=== PATIENT | male | born 1970 | race Caucasian/White ===

== ENCOUNTER → 2017-02-05 | Outpatient (CLI) | payer BC ==
[~2017-02-05] MED LIST: ACET-1256 PO; GABA-113 PO; HYDR-5688 PO; IBUP-1050 PO; NICO14DI9 TOP; NXM/40 PO; PRAV20TA PO; SERT-234 PO; TIOT1SPR INH
--- NOTE | 2017-02-05 16:32 | DIAGNOSTIC IMAGING REPORT ---
L-SPINE FLEX/EXT BENDING MIN 6 CLINICAL HISTORY: LUMBAR RADICULOPATHY COMPARISON STUDY: None FINDINGS: Normal study. Body stature is unremarkable. No evidence for subluxation with the patient in flexion or extension. Posterior elements are intact throughout. IMPRESSION: Normal study. Anatomic alignment with the patient in flexion as well as extension Electronically signed by: Frankie Rhodes M.D. 02/05/2017 4:30 PM Dictated Date/Time: 02/05/2017 4:29 PM
== END | disposition home or self-care (01) ==
LOC: C.RAD 15:38
PROVIDERS: ATTEND Physician Assistant
DX: M54.16 Radiculopathy, lumbar region (principal)

== ENCOUNTER → 2017-02-24 | Outpatient (CLI) | payer BC ==
--- NOTE | 2017-02-24 20:17 | DIAGNOSTIC IMAGING REPORT ---
LUMBAR SPINE MRI HISTORY: Pain. Neuropathy. LUMBAR RADICULOPATHY TECHNIQUE: Multiplanar multisequence MRI of the lumbar spine was performed without the use of contrast. COMPARISON: None. FINDINGS: For the purpose of the report the L5-S1 disc space will be located on axial image 27 of 30. Normal signal characteristics the vertebral bodies as well as intervertebral disc. L1-L2: No significant central canal or neural foraminal narrowing. L2-L3: No significant central canal or neural foraminal narrowing. L3-L4: No significant central canal or neural foraminal narrowing. L4-L5: Minimal broad-based disc bulge. Minimal narrowing neuroforamina bilaterally. L5-S1: Central disc herniation. Mild posterior displacement of the right S1 nerve root. No significant impact with thecal sac. IMPRESSION: 1. Right central posterior disc herniation L5-S1. Mild posterior displacement of the right S1 nerve root as well as mild narrowing of the right and to lesser extent left neural foramina. 2. Minimal broad-based disc bulge L4-L5. Electronically signed by: Frankie Rhodes M.D. 02/24/2017 8:16 PM Dictated Date/Time: 02/24/2017 8:14 PM
== END | disposition home or self-care (01) ==
LOC: C.MRI 19:07
PROVIDERS: ATTEND Physician Assistant
DX: M51.17 Intervertebral disc disorders with radiculopathy, lumbosacral region (principal)

== ENCOUNTER 2017-04-25 07:53 | Observation (INO) | payer BC ==
--- NOTE | 2017-04-18 10:24 | PAT Medication Instructions ---
Service Date Apr 18, 2017. Current Home Medication List Acetaminophen (Tylenol), 1,000 MG PO PRN Esomeprazole Magnesium (Nexium), 40 MG PO BID Gabapentin (Neurontin), 300 MG PO BID Ibuprofen (Advil), 800 MG PO PRN Pravastatin (Pravachol ), 40 MG PO HS Sertraline (Zoloft), 100 MG PO QAM Tiotropium [place] (Spiriva Respimat), 2 PUFF INH QAM Medication Instructions For Your Scheduled Surgery - Check with surgeon for instructions: Ibuprofen (Advil), 800 MG PO PRN - Take the following medications the morning of surgery with a sip of water: Sertraline (Zoloft), 100 MG PO QAM Tiotropium [place] (Spiriva Respimat), 2 PUFF INH QAM Esomeprazole Magnesium (Nexium), 40 MG PO BID Gabapentin (Neurontin), 300 MG PO BID Acetaminophen (Tylenol), 1,000 MG PO PRN (if needed) - Take the following medications as scheduled the night before surgery: Pravastatin (Pravachol ), 40 MG PO HS Esomeprazole Magnesium (Nexium), 40 MG PO BID Gabapentin (Neurontin), 300 MG PO BID Acetaminophen (Tylenol), 1,000 MG PO PRN (if needed) If you have any questions please call us at [phone] or [phone] or [phone]
[2017-04-18 11:11] LABS: BASO % 0.3 %; BASO ABS # 0.05 K/uL (0-0.2); COMPLETE YES; HEMATOCRIT 49.7 % (42-52); IG% 0.3 %; LYMPH % 19.4 %; LYMPH ABS # 2.82 K/uL (1.2-3.4); MEAN CELL VOLUME 94.1 fL (80-100); MEAN CORPUSCULAR HEMOGLOBIN 33.1 pg (25-34); MEAN CORPUSCULAR HGB CONC 35.2 g/dl (32-36); MONO % 8.8 %; NEUT % 70.2 %; PLATELET COUNT 396 K/uL (130-400); RED BLOOD COUNT 5.28 M/uL (4.7-6.1); WHITE BLOOD COUNT 14.56 K/uL (4.8-10.8)
[2017-04-18 11:15] LABS: URINE APPEARANCE CLEAR (CLEAR); URINE BILIRUBIN NEG (NEG); URINE COLOR YELLOW; URINE EPITHELIAL CELL AUTO 0-5 /lpf (0-5); URINE NITRITE NEG (NEG); URINE SPECIFIC GRAVITY 1.013 (1.000-1.030); UROBILINOGEN NEG (NEG)
[2017-04-18 11:16] LABS: MANUAL MICROSCOPIC REQUIRED? NO; REVIEW REQ? NO
[2017-04-18 11:21] LABS: INR 0.9 (0.9-1.1)
[2017-04-18 13:30] LABS: BUN/CREATININE RATIO 7.6 (10-20); CREATININE 1.3 mg/dl (0.60-1.40); POTASSIUM 4.8 mmol/L (3.5-5.1)
[2017-04-25] VITALS (8 sets, daily range): BP systolic 112–146; BP diastolic 70–93; PULSE 73–88; TEMP 36.5–36.8; O2SAT 93–99; Ht 182.9 cm; Wt 67.1 kg
[~2017-04-25] VITALS: Ht 182.9 cm; Wt 67.1 kg
--- NOTE | 2017-04-25 07:34 | History and Physical ---
History & Physical Date Apr 25, 2017. Chief Complaint Lumbar spine and lower extremity pain History of Present Illness The patient is a 46 year old male with complaints of lumbar spine and lower extremity pain for months in duration. Failure to improve the patient with conservative measures pain and lower extremity weakness as well. Past Medical/Surgical History Medical Problems: (1) HTN (hypertension) Surgical history: Shoulder surgery splenectomy. Allergies: Penicillin Additional History Hepatic Disease: No Endocrine Disorder: No Kidney Disease: No Hypertension: No Heart Disease: No Bleeding Tendencies: No Infectious Diseases: No Other: Early emphysema. Depression. Allergies Coded Allergies: Penicillins (Verified Allergy, Unknown, RASH, 04/18/17) Tramadol (Verified Adverse Reaction, Mild, FELT "OUT OF IT" AND "SKIN CRAWLING SENSATION", 04/18/17) Home Medications Scheduled Acetaminophen (Tylenol), 1,000 MG PO PRN Esomeprazole Magnesium (Nexium), 40 MG PO BID Gabapentin (Neurontin), 300 MG PO BID Ibuprofen (Advil), 800 MG PO PRN Pravastatin (Pravachol ), 40 MG PO HS Sertraline (Zoloft), 100 MG PO QAM Tiotropium [place] (Spiriva Respimat), 2 PUFF INH QAM Physical Examination Skin: warm/dry Eyes: normal inspection ENT: normal ENT inspection Head: normocephalic Neck: supple Respiratory/Chest: lungs clear Cardiovascular: regular rate, rhythm Abdomen / GI: normal bowel sounds, non tender Extremities: + pertinent finding (decreased range of motion pain with percussion. Loss of motion in flexion-extension and rotation.) Genitourinary - Male: normal male genitalia Neurologic/Psych: + pertinent finding (loss of sensation S1 nerve root distribution. Again pain with straight leg raising. Still Achilles reflex. No upper motor neuron pathology) Diagnosis Disc herniation lumbar spine ASA Classification: ASA Class III Plan of Treatment Discectomy L5-S1
[~2017-04-25 07:53] MED LIST changes: +CEFAZOLIN 2000 MG/60 ML D5W 60 ML IV SCH; -HYDR-5688 PO; +LACTATED RINGER'S 1000ML 1,000 ML IV SCH; -NICO14DI9 TOP; +NSS 1000ML IV SCH
[2017-04-25] MEDS ORDERED: THROMBIN FOR SOLN 20000 UNIT KIT ONE (09:19)
[2017-04-25] MEDS ORDERED: GELATIN SPONGE SZ 100 ONE (09:19)
[2017-04-25] MEDS ORDERED: BACITRACIN 50000 UNIT VIAL ONE (09:20)
[2017-04-25] MEDS ORDERED: VANCOMYCIN HCL 1000MG/20ML VIAL ONE (09:20)
[2017-04-25] MEDS ORDERED: BUPIVACAINE/EPINEPHRINE 0.5% MPF 1:200,000 10 ML VIAL ONE ×2 (09:20→09:28)
[2017-04-25] MEDS ORDERED: MIDAZOLAM HCL 1 MG/ML 2ML VIAL ONE (09:27)
[2017-04-25] MEDS ORDERED: FENTANYL CITRATE INJ 50 MCG/1 ML 2 ML VIAL ONE ×2 (09:27→11:29)
[2017-04-25] MEDS ORDERED: NURSING VERBAL MED ORDER ONE ×2 (09:45→16:45)
[2017-04-25] MEDS ORDERED: NICO14DI9 TOP (09:58)
[2017-04-25] MEDS ORDERED: ATROPINE SULFATE 0.1 MG/ML 5ML SYR IV PRN (11:00)
[2017-04-25] MEDS ORDERED: ONDANSETRON INJ 2 MG/ML 2 ML VIAL IV PRN ×2 (11:00→11:30)
[2017-04-25] MEDS ORDERED: FENTANYL CITRATE INJ 50 MCG/1 ML 2 ML VIAL IV PRN (11:00)
[2017-04-25] MEDS ORDERED: MEPERIDINE HCL 25 MG/ML CARP IV PRN (11:00)
[2017-04-25] MEDS ORDERED: LABETALOL HCL IV 5 MG/ML 20ML IV PRN (11:00)
[2017-04-25] MEDS ORDERED: HYDROmorphone INJ 1 MG/ML SYR IV PRN ×2 (11:00→11:30)
[2017-04-25] MEDS ORDERED: EpHEDrine SULFATE INJ 50 MG/ML AMP IV PRN (11:00)
--- NOTE | 2017-04-25 11:02 | DIAGNOSTIC IMAGING REPORT ---
SPINE ONE VIEW, ANY LEVEL CLINICAL HISTORY: 46 years-old Male presenting with L5-S1 DISCECTOMY. TECHNIQUE: 1 fluoroscopic spot image(s) obtained as part of intraoperative procedure. COMPARISON: Plain radiographs from 02/05/2017. FINDINGS/IMPRESSION: Surgical instrumentation projects over the L5-S1 intervertebral disc space. Anatomic alignment of the lumbosacral junction grossly maintained. Please see surgical report for further details. Fluoroscopy dosage (mGy): Not available. Fluoroscopy time: 4.4 seconds. Number of fluoroscopic spot images: 1. Electronically signed by: Earl Herrera M.D. 04/25/2017 11:01 AM Dictated Date/Time: 04/25/2017 11:00 AM
[2017-04-25] MEDS ORDERED: SODIUM CHLORIDE 0.9% 1000ML 1,000 ML IV SCH (11:17)
--- NOTE | 2017-04-25 11:22 | [facility] Operative Report ---
Operative Report Operative Date Apr 25, 2017. Pre-Operative Diagnosis L5-S1 Disc Herniation Post-Operative Diagnosis L5-S1 Disc Herniation Procedure(s) Performed L5-S1 Discectomy Surgeon Dr. Ivey Client Reporting Associate Surgeon(s) Raffi Bauer PA-C Estimated Blood Loss 20ml Findings Disc herniation lumbar spine at L5-S1 Specimens none per surgeon Complication(s) None Disposition Recovery Room / PACU Description of Procedure Description Patient was taken to the operating room a general intubated anesthetic provided to the patient placed prone on the Jeremiah table. Scrubbed with Betadine prep with ChloraPrep. Draped sterile. We made a skin incision then fascial incision. The right down at L5-S1 we used C-arm guidance. We did a mini laminotomy upgoing and downgoing foraminotomies. We took off a small piece of ligamentum flavum. We gently retracted the dura medial and nerve root medial discectomy first with a 15 number scalpel blade and pituitary Hai juris. The nerve to be free of obstruction. Irrigated thoroughly placed some Gelfoam over the dural structures close fascia fashion with 1 Vicryl suture to all in the subcuticular layer vancomycin placed in the in the subcuticular layer 3-0 nylon on the skin surface. Sterile dressings applied as returned to PACU stable no apparent complications. Needle count correct at the close of procedure I attest to the content of the Intraoperative Record and any orders documented therein. Any exceptions are noted below.
[2017-04-25] MEDS ORDERED: ONDANSETRON INJ 2 MG/ML 2 ML VIAL ONE (11:28)
[2017-04-25] MEDS ORDERED: PROPOFOL IV EMULSION 10 MG/ML 20 ML VIAL IV ONE (11:28)
[2017-04-25] MEDS ORDERED: DEXAMETHASONE SOD INJ 4 MG/ML VIAL ONE (11:28)
[2017-04-25] MEDS ORDERED: GLYCOPYRROLATE INJ 0.2 MG/ML VIAL ONE (11:28)
[2017-04-25] MEDS ORDERED: ROCURONIUM BROMIDE 10 MG/ML 5 ML VIAL ONE (11:28)
[2017-04-25] MEDS ORDERED: NEOSTIGMINE METHYLSULFATE 5 MG/5 ML SYR ONE (11:28)
[2017-04-25] MEDS ORDERED: MAGNESIUM HYDROXIDE SUSP 30 ML UDC PO PRN (11:30)
[2017-04-25] MEDS ORDERED: ACETAMINOPHEN 325 MG TAB PO PRN (11:30)
[2017-04-25] MEDS ORDERED: HYDROmorphone INJ 2 MG/ML SYR/VIAL IV PRN (11:30)
[2017-04-25] MEDS ORDERED: METOCLOPRAMIDE HCL INJ 5 MG/ML 2 ML VIAL IV PRN (11:30)
[2017-04-25] MEDS ORDERED: PROMETHAZINE HCL INJ 12.5 MG in SODIUM CHLORIDE 0.9% 50ML 50 ML IV PRN (11:30)
[2017-04-25] MEDS ORDERED: OXYCODONE/ACETAMINOPHEN 5-325 TAB PO PRN (11:30)
[2017-04-25] MEDS ORDERED: LORAZEPAM 1 MG TAB PO PRN (11:30)
[2017-04-25] MEDS ORDERED: LORAZEPAM INJ 1 MG in SYRINGE 0.5 ML IV PRN (11:30)
[2017-04-25] MEDS ORDERED: IV FLUIDS COMPLETED PRN (12:15)
--- NOTE | 2017-04-25 12:19 | Anesthesiology Progress Note ---
Anesthesia Post Op Note Date & Time Apr 25, 2017 at 12:18 Vital Signs Pain Intensity: 0 Vital Signs Past 12 Hours Date Time Temp Pulse Resp B/P (MAP) Pulse Ox O2 Delivery O2 Flow Rate FiO2 04/25/17 12:10 78 18 113/74 99 Oxymask 2 Nasal Cannula 04/25/17 12:00 78 18 120/76 99 Oxymask 2 Nasal Cannula 04/25/17 11:50 36.3 76 20 123/77 99 Oxymask 2 Nasal Cannula 04/25/17 11:40 84 20 131/83 99 Oxymask 2 Nasal Cannula 04/25/17 11:30 82 20 134/81 99 Oxymask 3 04/25/17 11:20 100 20 141/79 99 Oxymask 5 04/25/17 11:15 36.1 100 20 149/91 99 Oxymask 5 04/25/17 08:23 36.8 78 20 146/93 (110) 97 Room Air Notes Mental Status: alert / awake / arousable, participated in evaluation Pt Amnestic to Procedure: Yes Nausea / Vomiting: adequately controlled Pain: adequately controlled Airway Patency, RR, SpO2: stable & adequate BP & HR: stable & adequate Hydration State: stable & adequate Anesthetic Complications: no major complications apparent
[2017-04-25] MEDS: KETOROLAC TROMETHAMINE 30 MG/ML VIAL IV SCH ×2 (13:40→20:23)
[2017-04-25] MEDS: OXYCODONE/ACETAMINOPHEN 5-325 TAB PO PRN ×2 (14:42→22:14)
[2017-04-25] MEDS: NICOTINE 14 MG/24 HR TDSY TD SCH (17:49)
[2017-04-25] MEDS: CEFAZOLIN IV 1,000 MG in DEXTROSE 5% 50ML 50 ML IV SCH (17:50)
[2017-04-25] MEDS: DEXAMETHASONE INJ 10 MG in SYRINGE 0 ML IV SCH (17:50)
[2017-04-25] MEDS: GABAPENTIN 300 MG CAP PO SCH (20:25)
[2017-04-25] MEDS: PANTOprazole SOD 40 MG TAB PO SCH (20:26)
[2017-04-25] MEDS ORDERED: PRAVASTATIN SOD 40 MG TAB PO SCH (21:00)
[2017-04-26] MEDS: KETOROLAC TROMETHAMINE 30 MG/ML VIAL IV SCH ×2 (02:34→08:11)
[2017-04-26] MEDS: CEFAZOLIN IV 1,000 MG in DEXTROSE 5% 50ML 50 ML IV SCH ×2 (02:34→10:22)
[2017-04-26] MEDS: DEXAMETHASONE INJ 10 MG in SYRINGE 0 ML IV SCH ×2 (02:34→10:22)
[2017-04-26 02:40] VITALS: BP 124/72; PULSE 74; TEMP 36.6; O2SAT 94
[2017-04-26] MEDS: OXYCODONE/ACETAMINOPHEN 5-325 TAB PO PRN ×2 (02:40→08:10)
[2017-04-26] MEDS ORDERED: BISACODYL 5 MG TABEC PO PRN (06:00)
[2017-04-26] MEDS ORDERED: BISACODYL 10 MG SUPP PR PRN (06:00)
--- NOTE | 2017-04-26 07:23 | Discharge Instructions ---
Discharge Instructions Date of Service Apr 26, 2017. Admission Reason for Admission: L5-S1 Disc Herniation Discharge Discharge Diagnosis / Problem: disc herniation Discharge Goals Goal(s): Improve function Activity Recommendations Activity Limitations: as noted below Lifting Limitations: until after follow-up appointment Exercise/Sports Limitations: until after follow-up appointment May Resume Sexual Activity: after follow-up appointment Shower/Bathe: keep incision dry just be careful . Current Hospital Diet Patient's current hospital diet: Regular Diet Discharge Diet Recommended Diet: Regular Diet Procedures Procedures Performed: L5-S1 Discectomy Pending Studies Studies pending at discharge: no Medical Emergencies . Who to Call and When: Medical Emergencies: If at any time you feel your situation is an emergency, please call 911 immediately. . Non-Emergent Contact Non-Emergency issues call your: Surgeon . "Provider Documentation" section prepared by Michel Ivey. . VTE Core Measure Inpt VTE Proph given/why not?: Treatment not indicated
--- NOTE | 2017-04-26 07:28 | Discharge Summary ---
Orthopedic Discharge Summary Admission Date/Reason Apr 25, 2017 at 08:15 L5-S1 Disc Herniation. Discharge Date/Disposition Apr 26, 2017 Home Diagnosis Principal Diagnosis: Lumbar spine disc herniation Procedure(s) Performed Lumbar spine discectomy L5-S1 Medication Reconciliation [place] for pain Admission Physical Exam As per Admitting History & Physical. Hospital Course Patient was admitted to my service after surgery a April. He was improved stable and ambulatory that evening discharged home safely on the . He had no chest pain shortness or breath or confusion nor neurological deficit traction precautions provided the patient in the office and during his hospital stay Discharge Instructions Please refer to the electronic Patient Visit Report (Discharge Instructions) for additional information.
[2017-04-26 08:00] VITALS: BP 120/76; PULSE 80; TEMP 36.7; O2SAT 94
[2017-04-26] MEDS: GABAPENTIN 300 MG CAP PO SCH (08:10)
[2017-04-26] MEDS: NICOTINE 14 MG/24 HR TDSY TD SCH (08:11)
[2017-04-26] MEDS: PANTOprazole SOD 40 MG TAB PO SCH (08:11)
[2017-04-26 08:14] VITALS: O2SAT 94
[2017-04-26] MEDS ORDERED: POLYETHYLENE (MIRALAX) 17 GM PACK ONE (08:15)
[2017-04-26] MEDS ORDERED: SERTRALINE HCL 100 MG TAB PO SCH (09:00)
[2017-04-26] MEDS ORDERED: TIOTROPIUM BROMIDE 5 PUFF/90 MCG INH INH SCH (09:00)
[2017-04-26] MEDS ORDERED: POLYETHYLENE (MIRALAX) 17 GM PACK PO SCH (09:00)
[2017-04-26 10:18] VITALS: BP 171/74; PULSE 76; O2SAT 96
[2017-04-26 11:23] VITALS: BP 171/74; PULSE 76; TEMP 36.7; O2SAT 96
[2017-06-28] MEDS ORDERED: HYDR-5688 PO (09:43)
== END 2017-04-26 11:49 | disposition home or self-care (01) ==
LOC: C.ACU 07:53 → C.3E 08:15 → ENRESERV 12:05
PROVIDERS: ADMIT Orthopaedic Surgery Orthopaedic Surgery of the Spine; ATTEND Orthopaedic Surgery Orthopaedic Surgery of the Spine
DX: M51.27 Other intervertebral disc displacement, lumbosacral region (principal); I10 Essential (primary) hypertension; J43.9 Emphysema, unspecified; F32.9 Major depressive disorder, single episode, unspecified; Z79.899 Other long term (current) drug therapy

== ENCOUNTER → 2017-06-15 | Outpatient (CLI) | payer BC ==
[~2017-06-15] MED LIST changes: -CEFAZOLIN 2000 MG/60 ML D5W 60 ML IV SCH; +HYDR-5688 PO; -LACTATED RINGER'S 1000ML 1,000 ML IV SCH; +NICO14DI9 TOP; -NSS 1000ML IV SCH
--- NOTE | 2017-06-15 10:57 | DIAGNOSTIC IMAGING REPORT ---
LUMBAR SPINE MRI HISTORY: Low back pain. LUMBAR DISC HERNIATION; M51.26 TECHNIQUE: Multiplanar multisequence MRI of the lumbar spine was performed without the use of contrast. COMPARISON: Lumbar spine MRI 02/24/2017. FINDINGS: For the purpose of the report the L5-S1 disc space will be located on axial image 23 of 25. Mild to moderate disc space narrowing at L5-S1, unchanged. The remaining disc spaces are preserved. The conus terminates at the L1-L2 disc space. No fracture or subluxation. Interval right L5-S1 hemilaminectomy. There is a 1.4 x 0.8 cm fluid collection at the hemilaminectomy site. This likely represents a postoperative seroma. There is no associated mass effect from the small fluid collection. There is also edema within the soft tissues posterior to the L5-S1 level consistent with the recent postoperative change. L1-L2: No significant central canal or neural foraminal narrowing. L2-L3: No significant central canal or neural foraminal narrowing. L3-L4: No significant central canal or neural foraminal narrowing. L4-L5: Tiny broad-based posterior disc bulge without significant central canal narrowing. There is a small right foraminal/extraforaminal focal disc protrusion best seen on sagittal image 4 and axial image 18 and measures approximately 8 x 3 mm. This abuts but does not displace the exiting nerve root. L5-S1: There is again noted a right central/paracentral focal disc protrusion which has decreased in size. This abuts but does not displace the transiting right S1 nerve root. This disc protrusion currently measures approximately 1.4 x 0.5 cm, previously measuring 1.9 x 0.7 cm. IMPRESSION: 1. Status post right L5-S1 hemilaminectomy. The right central/paracentral focal disc protrusion has decreased in size as described above. This abuts but does not displace the transiting right S1 nerve root at this time. 2. Tiny disc bulge at L4-L5 with a small right foraminal/extraforaminal focal disc protrusion. This abuts but does not displace the exiting nerve root at this level. 3. Small focal fluid collection at the right L5-S1 hemilaminectomy site without associated mass effect. This favors a small postoperative seroma. Electronically signed by: Aman Smith M.D. 06/15/2017 10:56 AM Dictated Date/Time: 06/15/2017 10:46 AM
== END | disposition home or self-care (01) ==
LOC: C.MRIBC 09:50
PROVIDERS: ATTEND Orthopaedic Surgery Orthopaedic Surgery of the Spine
DX: M51.26 Other intervertebral disc displacement, lumbar region (principal); Z98.890 Other specified postprocedural states

== ENCOUNTER 2017-08-11 08:23 | Inpatient (IN) | payer BC ==
[2017-06-28 09:59] VITALS: Ht 182.9 cm; Wt 67.1 kg
[2017-07-01 16:41] LABS: BASO % 0.5 %; BASO ABS # 0.04 K/uL (0-0.2); COMPLETE YES; HEMATOCRIT 49.5 % (42-52); IG% 0.3 %; LYMPH % 34.5 %; LYMPH ABS # 2.66 K/uL (1.2-3.4); MEAN CELL VOLUME 94.1 fL (80-100); MEAN CORPUSCULAR HEMOGLOBIN 34.6 pg (25-34); MEAN CORPUSCULAR HGB CONC 36.8 g/dl (32-36); MEAN PLATELET VOLUME 9.2 fL (7.4-10.4); MONO % 9.1 %; NEUT % 54.6 %; PLATELET COUNT 343 K/uL (130-400); RED BLOOD COUNT 5.26 M/uL (4.7-6.1); WHITE BLOOD COUNT 7.72 K/uL (4.8-10.8)
[2017-07-01 16:51] LABS: PROTHROMBIN TIME (PATIENT) 10.5 SECONDS (9.0-12.0)
[2017-07-01 17:09] LABS: BLOOD UREA NITROGEN 10 mg/dl (7-18); BUN/CREATININE RATIO 8.4 (10-20); CALCIUM 9.5 mg/dl (8.5-10.1); CARBON DIOXIDE 27 mmol/L (21-32); CHLORIDE 105 mmol/L (98-107); GLUCOSE 91 mg/dl (70-99); POTASSIUM 4.2 mmol/L (3.5-5.1); SODIUM 140 mmol/L (136-145)
--- NOTE | 2017-08-10 10:44 | HISTORY & PHYSICAL EXAMINATION ---
DATE OF ADMISSION: 08/11/2017 CHIEF COMPLAINT: Back and lower extremity difficulty in the L5-S1 nerve root distribution. HISTORY OF PRESENT ILLNESS: Charles is a delightful patient. I did a discectomy on him in the past, he has failed. He actually had a good short term result but failed. He has gone on to reherniation and some instability at L5-S1. PAST MEDICAL HISTORY: Positive for COPD, no liver or kidney disease, no carcinoma. No diabetes, no hypothyroid. ALLERGIES: PENICILLIN. PAST SURGICAL HISTORY: Include low back surgery, splenectomy and shoulder surgery. SOCIAL HISTORY: Cigarette smoking 2 packs per day for many years. Alcohol, 1 alcoholic beverage daily. No cocaine, marijuana. MEDICATIONS: Sertraline, Spiriva, tramadol, ibuprofen. REVIEW OF SYSTEMS: He denies blurred vision, double vision, tinnitus, vertigo. No chest pain, angina. Does have asthma but currently no shortness of breath of significance. No nausea, vomiting or bowel and bladder compromise. His major complaint is spine and lower extremity. OBJECTIVE: GENERAL: He is 6 foot. He is 160 pounds. He is thin in stature. VITAL SIGNS: Blood pressure 130/80, pulse of 80, respiratory rate is 16. HEENT: Pupils react to light and accommodation. Ear, nose and throat clear. CARDIAC: Normal S1, no S2, no ectopy, no tachycardia. LUNGS: Clear. ABDOMEN: Soft, nontender. MUSCULOSKELETAL: He has pain with straight leg raising on the right, negative on the left, pain with flexion and extension. Pain with percussion, loss of his Achilles reflex per our note. IMPRESSION: Instability, recurrent disc herniation L5-S1. DISPOSITION: Includes surgery tomorrow on 08/11/2017, posterior lumbar interbody fusion at L5-S1.
[~2017-08-11] VITALS: Ht 182.9 cm; Wt 67.1 kg
[2017-08-11] VITALS (8 sets, daily range): BP systolic 109–144; BP diastolic 68–91; PULSE 79–122; TEMP 36.6–37; O2SAT 93–97
[~2017-08-11 08:23] MED LIST changes: -ACET-1256 PO; +ATROPINE SULFATE 0.1 MG/ML 5ML SYR IV PRN; +CLINDAMYCIN 600 MG/54 ML D5W 54 ML IV SCH; +CLINDAMYCIN 600 MG/54 ML D5W IV SCH; +EpHEDrine SULFATE INJ 50 MG/ML AMP IV PRN; +FENTANYL CITRATE INJ 50 MCG/1 ML 2 ML VIAL IV PRN; +FENTANYL CITRATE INJ 50 MCG/1 ML 2 ML VIAL ONE; +HYDROmorphone INJ 1 MG/ML SYR IV PRN; -IBUP-1050 PO; +MIDAZOLAM HCL 1 MG/ML 2ML VIAL ONE; -NICO14DI9 TOP; +NSS 1000ML IV SCH; +ONDANSETRON INJ 2 MG/ML 2 ML VIAL IV PRN; +SODIUM CHLORIDE 0.9% 1000ML 1,000 ML IV SCH
[2017-08-11] MEDS ORDERED: ALBUT/IPRATROP 3MG/0.5MG NEB 3 ML VIAL NEB STA (09:27)
[2017-08-11] MEDS ORDERED: ALBUTEROL 0.083% NEBU SOLN 3 ML VIAL INH PRN (10:00)
[2017-08-11] MEDS ORDERED: GELATIN SPONGE SZ 100 ONE (10:35)
[2017-08-11] MEDS ORDERED: THROMBIN FOR SOLN 20000 UNIT KIT ONE (10:35)
[2017-08-11] MEDS ORDERED: BUPIVACAINE/EPINEPHRINE 0.5% MPF 1:200,000 30 ML VIAL ONE (10:36)
[2017-08-11] MEDS ORDERED: BACITRACIN 50000 UNIT VIAL ONE (10:36)
[2017-08-11] MEDS ORDERED: VANCOMYCIN HCL 1000MG/20ML VIAL ONE (10:36)
--- NOTE | 2017-08-11 10:59 | History & Physical Bridge Note ---
H&P Re-Evaluation Bridge Note: I have examined the patient, reviewed the History & Physical and in the interval since the performance of the History & Physical I have noted the following changes of clinical significance: No changes noted
[2017-08-11] MEDS ORDERED: HYDROmorphone INJ 2 MG/ML SYR/VIAL ONE (11:32)
[2017-08-11] MEDS ORDERED: ROCURONIUM BROMIDE 10 MG/ML 5 ML VIAL IV ONE (12:25)
[2017-08-11] MEDS ORDERED: DEXAMETHASONE SOD INJ 4 MG/ML VIAL ONE (12:25)
[2017-08-11] MEDS ORDERED: GLYCOPYRROLATE INJ 0.2 MG/ML VIAL ONE (12:25)
[2017-08-11] MEDS ORDERED: PROPOFOL IV EMULSION 10 MG/ML 20 ML VIAL IV ONE (12:25)
[2017-08-11] MEDS ORDERED: NEOSTIGMINE METHYLSULFATE 5 MG/5 ML SYR ONE (12:25)
[2017-08-11] MEDS ORDERED: LIDOCAINE HCL 2% 2 ML VIAL (20MG/ML) ONE (12:25)
[2017-08-11] MEDS ORDERED: EpHEDrine SULFATE 50MG/5ML SYR ONE (12:25)
[2017-08-11] MEDS ORDERED: ONDANSETRON INJ 2 MG/ML 2 ML VIAL ONE (12:25)
[2017-08-11] MEDS ORDERED: ALBUTEROL HFA INHALER 8.5 GM INH ONE (12:26)
--- NOTE | 2017-08-11 13:41 | DIAGNOSTIC IMAGING REPORT ---
INTRAOPERATIVE RADIOGRAPH CLINICAL HISTORY: L5-S1 spinal fusion. Fluoroscopy time: 7 seconds. FINDINGS: A single spot fluoroscopic image of the lumbar spine is presented. There has been discectomy at L5-S1 with laminectomy and posterior fusion at this level. Interpedicular screws are present at both levels. The orthopedic hardware appears intact. IMPRESSION: Intraoperative images from L5 -S1 spinal fusion as above. Electronically signed by: Geronimo Paiz M.D. 08/11/2017 1:39 PM Dictated Date/Time: 08/11/2017 1:38 PM
[2017-08-11] MEDS ORDERED: SODIUM CHLORIDE 0.9% 1000ML 1,000 ML IV SCH ×2 (14:06)
--- NOTE | 2017-08-11 14:13 | [facility] Operative Report ---
Operative Report Operative Date Aug 11, 2017. Pre-Operative Diagnosis Instability, recurrent disc herniation L5-S1 Post-Operative Diagnosis Instability, recurrent disc herniation L5-S1 Procedure(s) Performed L5-S1 DECOMPRESSION , FUSION , INSTRUMENTATION WITH INTERBODY FUSION Surgeon Dr. Ivey Senior Research Executive Surgeon(s) MIGUE Glez Estimated Blood Loss 250ml Findings instability l5-s1 Specimens none per surgeon Complication(s) None Disposition Recovery Room / PACU I attest to the content of the Intraoperative Record and any orders documented therein. Any exceptions are noted below.
[2017-08-11] MEDS ORDERED: METOCLOPRAMIDE HCL INJ 5 MG/ML 2 ML VIAL IV PRN (14:15)
[2017-08-11] MEDS ORDERED: NALOXONE HCL 0.4 MG/1 ML VIAL/CARP IV PRN (14:15)
[2017-08-11] MEDS ORDERED: ONDANSETRON INJ 2 MG/ML 2 ML VIAL IV PRN (14:15)
[2017-08-11] MEDS ORDERED: MAGNESIUM HYDROXIDE SUSP 30 ML UDC PO PRN (14:15)
[2017-08-11] MEDS ORDERED: LARYING-O-JET KIT (LTA) ONE ×2 (14:15)
[2017-08-11] MEDS ORDERED: LORAZEPAM INJ 1 MG in SYRINGE 0.5 ML IV PRN (14:15)
[2017-08-11] MEDS ORDERED: ACETAMINOPHEN 325 MG TAB PO PRN (14:15)
[2017-08-11] MEDS ORDERED: LORAZEPAM 1 MG TAB PO PRN (14:15)
[2017-08-11] MEDS ORDERED: PROMETHAZINE HCL INJ 12.5 MG in SODIUM CHLORIDE 0.9% 50ML 50 ML IV PRN (14:15)
[2017-08-11] MEDS ORDERED: HYDROmorphone INJ 1 MG/ML SYR ONE (14:36)
[2017-08-11] MEDS ORDERED: FENTANYL CITRATE INJ 50 MCG/1 ML 2 ML VIAL ONE (14:37)
[2017-08-11] MEDS: HYDROmorphone HCL 0.5MG/ML 50 ML CASSETTE IV PRN ×2 (14:41→22:55)
[2017-08-11 14:55] LABS: HEMATOCRIT 45.8 % (42-52)
--- NOTE | 2017-08-11 15:01 | OPERATIVE REPORT ---
DATE OF OPERATION: 08/11/2017 PREOPERATIVE DIAGNOSES: Instability, recurrent disc herniation L5-S1. POSTOPERATIVE DIAGNOSES: Same. PROCEDURE: Include lumbar spine, posterior lumbar interbody fusion L5-S1, complete discectomy at L5-S1, posterolateral fusion of L5-S1, pedicle screw instrumentation of L5-S1. SURGEON: Michel Ivey DO MERCURY WASHER: Raffi Bauer PA-C COMPLICATIONS: Zero. IMPLANTS USED: By the [employer]. COUNTS: Sponge and needle count correct at the close. E DESCRIPTION OF PROCEDURE: The patient was taken to the operating room. A general intubated anesthetic provided to the patient, placed prone, scrubbed, prepped and draped sterile. We made a skin incision from basically L4 down to S2 dissecting the soft tissue in the same plane, putting in a deep self-retaining retractor. We had good visibility. I worked very diligently on taking down the scar tissue, both right and left hand side completing the foraminotomy on this area, which should be the L5 nerve root and S1 nerve root bilaterally. We retracted the S1 nerve root medial, both sides; I was able to get to the disc herniation. We then instrumented the spine using anatomic guidelines and landmarks and C-arm guidance to safely get pedicle screws in the sacrum, pedicle screws into L5 bilaterally. We then completed the formal discectomy. We then prepared for the interbody fusion at L5-S1, scraping off the bone, shaving up to a size 9. We inserted 2 cages, 1 on the left and 1 on the right side, approximately 22 mm in length, 9 mm in height and approximately the left hand side was 10 mm across the right hand side of 8. We locked down the construct under compression. Radiographs were appropriate. We began our closure after we bone grafted out over the transverse processes. We placed vancomycin deep to the wound, closed with 1 Vicryl suture, 2-0 and 3-0 nylon. Sterile dressings applied. The patient returned to PACU stable. Estimated blood loss 250 mL. I attest to the content of the Intraoperative Record and any orders documented therein. Any exception s are noted below.
--- NOTE | 2017-08-11 15:41 | Anesthesiology Progress Note ---
Anesthesia Post Op Note Date & Time Aug 11, 2017 at 15:41 Vital Signs Pain Intensity: 2 Vital Signs Past 12 Hours Date Time Temp Pulse Resp B/P (MAP) Pulse Ox O2 Delivery O2 Flow Rate FiO2 08/11/17 15:36 125/70 08/11/17 15:33 103 16 97 08/11/17 15:33 103 16 08/11/17 15:31 127/75 08/11/17 15:28 103 13 08/11/17 15:28 102 13 98 08/11/17 15:27 104 13 08/11/17 15:27 105 13 98 08/11/17 15:26 124/71 08/11/17 15:22 99 15 96 08/11/17 15:22 100 15 08/11/17 15:21 125/83 08/11/17 15:17 115 22 98 08/11/17 15:17 116 22 08/11/17 15:16 139/79 08/11/17 15:13 114 21 08/11/17 15:13 113 21 97 08/11/17 15:12 36.8 08/11/17 15:11 131/86 08/11/17 15:08 115 28 08/11/17 15:08 115 28 97 08/11/17 15:06 138/91 08/11/17 15:03 107 19 08/11/17 15:03 108 19 96 08/11/17 15:02 105 14 123/79 96 08/11/17 15:02 106 14 08/11/17 14:57 108 15 99 08/11/17 14:57 109 15 08/11/17 14:56 122 20 08/11/17 14:56 122 20 138/90 100 08/11/17 14:54 130/80 08/11/17 14:51 110 12 100 08/11/17 14:51 109 12 08/11/17 14:46 117 17 143/82 97 08/11/17 14:46 117 17 08/11/17 14:41 104 11 08/11/17 14:41 103 11 142/84 99 08/11/17 14:36 105 11 08/11/17 14:36 105 11 139/82 99 08/11/17 14:31 107 16 138/85 98 08/11/17 14:31 106 16 08/11/17 14:27 144/85 08/11/17 14:26 36.1 99 16 144/85 100 Oxymask 10 08/11/17 14:26 107 16 08/11/17 14:26 108 16 100 08/11/17 09:30 86 16 96 Room Air 08/11/17 09:21 36.8 79 18 144/91 (108) 96 Room Air Notes Mental Status: alert / awake / arousable, participated in evaluation Pt Amnestic to Procedure: Yes Nausea / Vomiting: adequately controlled Pain: adequately controlled Airway Patency, RR, SpO2: stable & adequate BP & HR: stable & adequate Hydration State: stable & adequate Anesthetic Complications: no major complications apparent
[2017-08-11] MEDS: CLINDAMYCIN IV 600 MG in DEXTROSE 5% 50ML 50 ML IV SCH (18:16)
[2017-08-11] MEDS: KETOROLAC TROMETHAMINE 30 MG/ML VIAL IV SCH ×2 (18:16→23:24)
[2017-08-11] MEDS: DEXAMETHASONE INJ 10 MG in SYRINGE 0 ML IV SCH (20:25)
[2017-08-11] MEDS: PRAVASTATIN SOD 20 MG TAB PO SCH (20:26)
[2017-08-11] MEDS: GABAPENTIN 300 MG CAP PO SCH (20:26)
[2017-08-11] MEDS: PANTOprazole SOD 40 MG TAB PO SCH (20:26)
[2017-08-11] MEDS ORDERED: INFLUENZA ADMINISTRATION CHARGE ONE (21:00)
[2017-08-11] MEDS ORDERED: INFLUENZA VIRUS QUAD VACCINE 0.5 ML SYR IM. ONE (21:00)
[2017-08-11] MEDS ORDERED: NURSING VERBAL MED ORDER ONE (22:15)
[2017-08-11] MEDS: NICOTINE 21 MG/24 HR TDSY TD SCH (22:43)
[2017-08-12] MEDS: CLINDAMYCIN IV 600 MG in DEXTROSE 5% 50ML 50 ML IV SCH (01:47)
[2017-08-12 03:51] VITALS: BP 113/65; PULSE 96; TEMP 36.8; O2SAT 93
[2017-08-12] MEDS: DEXAMETHASONE INJ 10 MG in SYRINGE 0 ML IV SCH ×3 (04:02→20:22)
[2017-08-12] MEDS: KETOROLAC TROMETHAMINE 30 MG/ML VIAL IV SCH ×3 (05:26→18:26)
[2017-08-12] MEDS ORDERED: BISACODYL 10 MG SUPP PR PRN (06:00)
[2017-08-12] MEDS ORDERED: BISACODYL 5 MG TABEC PO PRN (06:00)
[2017-08-12] MEDS ORDERED: NURSING DECISION MEDICATION ORDER SCH (06:00)
[2017-08-12] MEDS: HYDROmorphone HCL 0.5MG/ML 50 ML CASSETTE IV PRN (06:48)
--- NOTE | 2017-08-12 07:33 | Anesthesiology Progress Note ---
Anesthesia Post Op Note Date & Time Aug 12, 2017 at 07:33 Vital Signs Pain Intensity: 2.0 Vital Signs Past 12 Hours Date Time Temp Pulse Resp B/P (MAP) Pulse Ox O2 Delivery O2 Flow Rate FiO2 08/12/17 03:51 36.8 96 16 113/65 (81) 93 Room Air 08/12/17 00:00 Room Air 08/11/17 23:28 36.9 89 16 111/69 (83) 93 Room Air Notes Mental Status: alert / awake / arousable, participated in evaluation Pt Amnestic to Procedure: Yes Nausea / Vomiting: adequately controlled Pain: adequately controlled Airway Patency, RR, SpO2: stable & adequate BP & HR: stable & adequate Hydration State: stable & adequate Anesthetic Complications: no major complications apparent
[2017-08-12 07:50] VITALS: BP 118/62; PULSE 74; TEMP 36.5; O2SAT 96
[2017-08-12] MEDS ORDERED: HYDROmorphone INJ 2 MG/ML SYR/VIAL IV PRN (08:00)
[2017-08-12] MEDS ORDERED: HYDROmorphone INJ 1 MG/ML SYR IV PRN (08:00)
[2017-08-12] MEDS ORDERED: OXYCODONE/ACETAMINOPHEN 5-325 TAB PO PRN (08:00)
[2017-08-12] MEDS ORDERED: DC PCA ONE (08:00)
[2017-08-12] MEDS: POLYETHYLENE (MIRALAX) 17 GM PACK PO SCH (08:23)
[2017-08-12] MEDS: PANTOprazole SOD 40 MG TAB PO SCH ×2 (08:23→20:23)
[2017-08-12] MEDS: GABAPENTIN 300 MG CAP PO SCH ×3 (08:23→20:23)
[2017-08-12] MEDS: SERTRALINE HCL 100 MG TAB PO SCH (08:23)
[2017-08-12] MEDS: TIOTROPIUM BROMIDE 5 PUFF/90 MCG INH INH SCH (08:24)
[2017-08-12 09:16] VITALS: O2SAT 96
[2017-08-12 11:55] VITALS: BP 104/68; PULSE 75; TEMP 37.1; O2SAT 96
[2017-08-12] MEDS: OXYCODONE/ACETAMINOPHEN 5-325 TAB PO PRN ×2 (14:04→18:15)
--- NOTE | 2017-08-12 14:57 | Discharge Instructions ---
Discharge Instructions Date of Service Aug 12, 2017. Admission Reason for Admission: Lumbar Disc Herniation Discharge Discharge Diagnosis / Problem: same and unstable disc Discharge Goals Goal(s): Improve function Activity Recommendations Activity Limitations: as noted below home ,rest, recover . Current Hospital Diet Patient's current hospital diet: Regular Diet Discharge Diet Recommended Diet: Regular Diet Procedures Procedures Performed: L5-S1 DECOMPRESSION , FUSION , INSTRUMENTATION WITH INTERBODY FUSION Pending Studies Studies pending at discharge: no Medical Emergencies . Who to Call and When: Medical Emergencies: If at any time you feel your situation is an emergency, please call 911 immediately. . Non-Emergent Contact Non-Emergency issues call your: Surgeon . "Provider Documentation" section prepared by Michel Ivey. . VTE Core Measure Inpt VTE Proph given/why not?: Treatment not indicated
[2017-08-12 15:00] VITALS: BP 129/81; PULSE 83; TEMP 36.7; O2SAT 95
--- NOTE | 2017-08-12 15:05 | Discharge Instructions ---
Discharge Instructions Date of Service Aug 12, 2017. Admission Reason for Admission: Lumbar Disc Herniation Discharge Discharge Diagnosis / Problem: same and instability Discharge Goals Goal(s): Decrease discomfort, Improve function Activity Recommendations Activity Limitations: as noted below . Instructions / Follow-Up Instructions / Follow-Up MEDICATIONS: Please take your prescriptions as instructed at your pre-op appointment. SPECIAL CARE: The following information is intended to answer some of the common questions and concerns regarding your surgery. Each patient is an individual and receives individual counselling throughout the course of treatment, from diagnosis to surgery all the way through recovery. What follows is not an exhaustive list, but should be a useful guide to some of the common questions and concerns patients have regarding their surgeries. These are not provided to keep you from calling us; rather, they give you something accurate and concrete to reference as you recover from your procedure. If you need us, we are available to you. As always, if you are not sure about something, call us at [phone]. MEDICAL EMERGENCIES: For these conditions, call 911 or go to your local hospital-based Emergency Department - not [facility] or equivalent. * Paralysis * Severe chest pain or difficulty breathing * Swelling or redness of either leg Spine procedures can be rather complex and though complications are rare, they do occur. In such cases, effective advice regarding emergency situations cannot always be addressed over the telephone. You may be referred to the emergency department for more effective management of your problem. Activity Limitations: It is important to give your body time to heal, so please limit your activities : * In general, don't do anything that moves your spine too much. You should avoid contact sports, twisting or heavy lifting while you recover. * 5-10 pounds is all you should attempt to lift. * You should not plan on driving for approximately 3 weeks and you should avoid traveling more than 30-45 minutes at a time. Longer trips should be broken down with walking breaks spaced appropriately. * Physical therapy is not usually required. * Walking and good posture practices will help you recover and regain your function. * Avoid straining or sudden changes in position. * In general, the goal is to take it easy and recover. Don't cause any new problems. Just relax. Showers: * Do not take a bath, use a Jacuzzi or hot tub or otherwise submerge your incision. * It is usually safe to take a shower 4-5 days after your surgery. * Your incision does not require any special creams or ointments. * Simply clean it with soap and water, dry and re-dress with a clean bandage afterwards. Incision: * Keep incision clean, dry and protected until your first follow-up appointment. * Some amount of drainage and redness is normal. Any drainage should be fairly clear and not have a foul odor. * If you feel anything is wrong or you have excessive drainage, please call us. * Your stitches and roberto will be removed 10-14 days after your surgery. At the time of your first post-op visit. * Neck surgeries are typically closed with a suture underneath the skin. The steri-strips over the incision should be maintained until we see you in the office. Bracing: * You may be provided with a back or neck brace to encourage good posture and prevent injury. It will remind you not to do too much as you heal and will alert others to the fact that you have had a surgery. * Back braces may be removed for showers and when you are resting at home. They must be worn when you are walking around for any period of time or for travel. * For neck surgery, you will likely be provided with two cervical collars. The soft collar ([place] or foam rubber) is worn most commonly throughout the day and while sleeping. The plastic collar (provided at the hospital) is for showering/bathing. * Except while eating, collars should remain in place. More specifically, bracing is provided for a purpose and should be worn. * Please obtain your brace or collars prior to your operation and bring them to the hospital with you on the day of surgery. * You should also bring your collars to your post-op appointment with Dr. Ivey. You should always take good care of your body and practice healthy habits, especially following surgery. You should: * Follow your doctor's treatment plan * Sit and stand properly with good posture (ears over shoulders, shoulders over hips) Don't slouch * Learn to lift correctly * Exercise regularly (low-impact aerobic exercise is especially good, but check with your doctor first) * Generally, be up and walking for 5-10 minutes at a time at least 3-4 times per day from the day you get home * Increasing walking to tolerance until you can walk for 20-30 minutes at a time * Attain and maintain a healthy body weight * Eat healthy foods ( a well-balanced, low-fat diet rich in fruits and vegetables) and get enough calcium * Avoid excessive use of alcohol When to call our office - If you notice any of the following: * Increased pain not relieve by pain medicine * Fevers greater then 100 degrees F, chills or flu symptoms * Increased redness around incision * Drainage from the incision that is not clear * Any foul smelling drainage * Swelling or fluid collection beneath the skin Miscellaneous: * In the hospital, you may be given a walker or cane for support while walking. These are temporary needs and are intended to prevent injuries due to falls. You may discontinue them when you feel strong and steady enough on your feet. * Sleep in a comfortable position. We find that many patients find a lounge chair or recliner with several pillows to be beneficial in the early post-operative period. * The support stockings should be used for 7-10 days and may be discontinued when you are back to walking more and conducting usual household activities. No problem is insignificant. We are here to help you and get you well. Contact us at [phone]. Definitions: Foraminotomy: If part of the disc or a bone spur (osteophyte) is pressing on a nerve as it leaves the vertebra (through an exit called the foramen), a foraminotomy may be done. Otomy means "to make an opening." A foraminotomy is making the opening of the foramen larger, so the nerve can exit without being compressed. Laminotomy: Similar to the foraminotomy, a laminotomy makes a larger opening, this time in your bony plate protecting your spinal canal and spinal cord (the lamina). The lamina may be pressing on your nerve, so the surgeon may make more room for the nerves using a laminotomy. Laminectomy: Sometimes, a laminotomy is not sufficient. The surgeon may need to remove all or part of the lamina. This procedure is called a laminectomy. This can often be done at many levels without any harmful effects. Current Hospital Diet Patient's current hospital diet: Regular Diet Discharge Diet Recommended Diet: Regular Diet Procedures Procedures Performed: L5-S1 DECOMPRESSION , FUSION , INSTRUMENTATION WITH INTERBODY FUSION Pending Studies Studies pending at discharge: no Medical Emergencies . Who to Call and When: Medical Emergencies: If at any time you feel your situation is an emergency, please call 911 immediately. . Non-Emergent Contact Non-Emergency issues call your: Surgeon Call Non-Emergent contact if: you have any medication questions . "Provider Documentation" section prepared by Michel Ivey. . VTE Core Measure Inpt VTE Proph given/why not?: Treatment not indicated
--- NOTE | 2017-08-12 15:26 | ORTHOPEDICS PROGRESS NOTE ---
DATE: 08/12/2017 DATE: 08/12/2017 SUBJECTIVE: Alert, oriented. Pain controlled. Vital signs stable. Drain functional. Afebrile. Hematocrit 45.8. IMPRESSION: Status post lumbar spine reconstructive surgery. Doing well in a very short run. DISPOSITION: Will get him up ambulatory today. Hopefully, discharge home tomorrow.
[2017-08-12] MEDS: NICOTINE 21 MG/24 HR TDSY TD SCH (20:25)
[2017-08-12] MEDS: PRAVASTATIN SOD 20 MG TAB PO SCH (21:02)
[2017-08-12 23:25] VITALS: BP 128/72; PULSE 81; TEMP 36.8; O2SAT 94
[2017-08-13] MEDS: OXYCODONE/ACETAMINOPHEN 5-325 TAB PO PRN ×3 (00:20→10:59)
[2017-08-13] MEDS: DEXAMETHASONE INJ 10 MG in SYRINGE 0 ML IV SCH (04:12)
[2017-08-13 06:56] VITALS: BP 135/78; PULSE 82; TEMP 36.7; O2SAT 93
[2017-08-13 09:00] VITALS: BP 135/78; PULSE 82; TEMP 36.7; O2SAT 93
[2017-08-13] MEDS: POLYETHYLENE (MIRALAX) 17 GM PACK PO SCH (09:15)
[2017-08-13] MEDS: TIOTROPIUM BROMIDE 5 PUFF/90 MCG INH INH SCH (09:16)
[2017-08-13] MEDS: GABAPENTIN 300 MG CAP PO SCH (09:16)
[2017-08-13] MEDS: SERTRALINE HCL 100 MG TAB PO SCH (09:16)
[2017-08-13] MEDS: PANTOprazole SOD 40 MG TAB PO SCH (09:25)
--- NOTE | 2017-08-13 22:40 | DISCHARGE SUMMARY ---
SUBJECTIVE: Alert, oriented, pain controlled. OBJECTIVE: Vital signs stable, 36.7 temperature, blood pressure is stable, pulse stable. Wound clean, no discharge. IMPRESSION AND PLAN: Delightful gentleman, 47 years of age status post lumbar spine reconstructive surgery, doing well in the short run. He will be discharged home this morning. He has a prescription on his chart. Follow up in 10 days. Instructions given, precautions given here at the hospital and in the office.
== END 2017-08-13 11:12 | disposition home or self-care (01) | DRG 455 ==
LOC: C.ACU 08:23 → C.3E 14:12 → ENRESERV 15:26
PROVIDERS: ADMIT Orthopaedic Surgery Orthopaedic Surgery of the Spine; ATTEND Orthopaedic Surgery Orthopaedic Surgery of the Spine
PROC: 0SG3071 Fusion of Lumbosacral Joint with Autologous Tissue Substitute, Posterior Approach, Posterior Column, Open Approach (ICD-10-PCS; principal; 2017-08-11 10:00)
PROC: 0SG30AJ Fusion of Lumbosacral Joint with Interbody Fusion Device, Posterior Approach, Anterior Column, Open Approach (ICD-10-PCS; principal; 2017-08-11 10:00)
PROC: 0ST40ZZ Resection of Lumbosacral Disc, Open Approach (ICD-10-PCS; principal; 2017-08-11 10:00)
DX: M51.27 Other intervertebral disc displacement, lumbosacral region (principal); M53.2X7 Spinal instabilities, lumbosacral region; J44.9 Chronic obstructive pulmonary disease, unspecified; F17.210 Nicotine dependence, cigarettes, uncomplicated; Z79.899 Other long term (current) drug therapy

== ENCOUNTER → 2018-05-25 | Outpatient (CLI) | payer OTHER ==
[~2018-05-25] MED LIST changes: -ATROPINE SULFATE 0.1 MG/ML 5ML SYR IV PRN; -CLINDAMYCIN 600 MG/54 ML D5W 54 ML IV SCH; -CLINDAMYCIN 600 MG/54 ML D5W IV SCH; -EpHEDrine SULFATE INJ 50 MG/ML AMP IV PRN; -FENTANYL CITRATE INJ 50 MCG/1 ML 2 ML VIAL IV PRN; -FENTANYL CITRATE INJ 50 MCG/1 ML 2 ML VIAL ONE; +GADAVIST IV PRN; -HYDR-5688 PO; -HYDROmorphone INJ 1 MG/ML SYR IV PRN; -MIDAZOLAM HCL 1 MG/ML 2ML VIAL ONE; -NSS 1000ML IV SCH; -NXM/40 PO; -ONDANSETRON INJ 2 MG/ML 2 ML VIAL IV PRN; +PRLSR20 PO; -SODIUM CHLORIDE 0.9% 1000ML 1,000 ML IV SCH
--- NOTE | 2018-05-25 13:43 | DIAGNOSTIC IMAGING REPORT ---
MRI OF THE LUMBAR SPINE COMBO CLINICAL HISTORY: Low back pain with right lower extremity radiculopathy. COMPARISON STUDY: CT scan of the lumbar spine dated 03/21/2018. MRI of the lumbar spine dated 06/15/2017. TECHNIQUE: MRI of the lumbar spine is performed utilizing various T1 and T2-weighed sequences in the axial and sagittal planes. Contrast-enhanced sequences are acquired following the IV administration of 6.5 mL of Gadavist. FINDINGS: Lumbar spine: Vertebral body height and alignment are maintained throughout the lumbar spine. There is straightening of the lumbar lordosis. Marrow signal intensity is heterogeneous. No destructive bony process is identified. There are postoperative changes from laminectomy and posterior fusion at L5-S1. The transverse processes and the remaining spinous processes appear intact. No evidence of spondylolysis is seen. Intervertebral discs: There has been discectomy at L5-S1. Mild degenerative disc desiccation is seen at the remaining lumbar levels. No significant loss of height is observed. Spinal cord: The visualized spinal cord is normal in morphology and signal intensity. The conus medullaris terminates at the L1-L2 interspace. The nerve roots of the cauda equina are normal in morphology. No abnormal postcontrast enhancement is identified. L1-L2: Unremarkable. L2-L3: Unremarkable. L3-L4: Unremarkable. L4-L5: Unremarkable. L5-S1: Minimal tissue posterior to the L5-S1 disc space likely represents granulation tissue. This does not cause any mass effect on the thecal sac. The central canal and neural foramina are patent. Sacrum: The visualized sacrum is normal in morphology and signal intensity. Soft tissues: Postoperative change is identified within the posterior soft tissues at L5-S1. No fluid collection is seen. Enhancing granulation tissue is noted in the operative bed. The paraspinous soft tissues are otherwise normal in appearance. The partially imaged retroperitoneal structures are grossly unremarkable but incompletely assessed. IMPRESSION: 1. There is no disc herniation, central canal stenosis, or neural foraminal narrowing seen throughout the lumbar spine. 2. Again seen are postoperative changes from L5 -S1 spinal fusion. 3. Nonspecific soft tissue posterior to the L5-S1 disc space is similar to previous and likely represents enhancing granulation tissue. This does not cause significant mass effect on the thecal sac. Dictated: 05/25/2018 12:15 PM Transcribed: 05/25/2018 1:43 PM [email or web address] Electronically signed by: Geronimo Paiz M.D. 05/25/2018 1:56 PM Dictated Date/Time: 05/25/2018 12:15 PM
== END | disposition home or self-care (01) ==
LOC: C.MRIBC 11:25
PROVIDERS: ATTEND Orthopaedic Surgery Orthopaedic Surgery of the Spine
DX: M51.26 Other intervertebral disc displacement, lumbar region (principal); M51.36 Other intervertebral disc degeneration, lumbar region; M79.9 Soft tissue disorder, unspecified

== ENCOUNTER 2020-02-06 09:57 | Inpatient (IN) ==
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
[~2020-02-06 09:57] MED LIST changes: +ACETAMINOPHEN 500 MG TAB PO SCH; +CEFAZOLIN 1000MG 1,000 MG/7.5 ML SYR IV SCH; +CeleBREX 200 MG CAP PO SCH; -GABA-113 PO; +GABAPENTIN 900 MG DOSE PO SCH; -GADAVIST IV PRN; +LR 15ML/HR IV SCH; -PRAV20TA PO; -PRLSR20 PO; -SERT-234 PO; -TIOT1SPR INH
[2020-02-06] MEDS ORDERED: ALBUT/IPRATROP 3MG/0.5MG NEB 3 ML VIAL NEB STA (12:06)
[2020-02-06] MEDS ORDERED: ONDANSETRON INJ 2 MG/ML 2 ML VIAL IV PRN ×2 (12:07→17:48)
[2020-02-06] MEDS ORDERED: ATROPINE SULFATE 0.1 MG/ML 10ML SYR IV PRN (12:07)
[2020-02-06] MEDS ORDERED: ePHEDrine sulfate 50 MG/ML AMP IV PRN (12:07)
[2020-02-06] MEDS ORDERED: HYDROmorphone INJ 0.5 MG/0.5 ML SYR IV PRN ×2 (12:07→17:48)
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
[2020-02-06] MEDS ORDERED: ONDANSETRON INJ 2 MG/ML 2 ML VIAL ONE (13:04)
[2020-02-06] MEDS ORDERED: fentaNYL citrate 100 MCG/2 ML VIAL ONE ×2 (13:04→14:26)
[2020-02-06] MEDS ORDERED: PROPOFOL IV EMULSION 10 MG/ML 20 ML VIAL IV ONE (13:04)
[2020-02-06] MEDS ORDERED: GLYCOPYRROLATE 0.2 MG/ML VIAL ONE ×2 (13:04→16:20)
[2020-02-06] MEDS ORDERED: MIDAZOLAM HCL 1 MG/ML 2ML VIAL ONE (13:04)
[2020-02-06] MEDS ORDERED: NEOSTIGMINE METHYLSULFATE 5 MG/5 ML SYR ONE ×2 (13:04→16:20)
[2020-02-06] MEDS ORDERED: ROCURONIUM BROMIDE 10 MG/ML 5 ML VIAL ONE (13:04)
[2020-02-06] MEDS ORDERED: LIDOCAINE HCL 2% 2 ML VIAL/AMP(20MG/ML) INFIL ONE (13:04)
--- NOTE | 2020-02-06 13:20 | History & Physical Bridge Note ---
Date of Service February 06, 2020 History & Physical Bridge Note I have examined the patient, reviewed the History & Physical and in the interval since the performance of the History & Physical I have noted the following changes of clinical significance: no changes noted
[2020-02-06] MEDS ORDERED: BACITRACIN INJ 50,000 UNIT VIAL ONE (14:07)
[2020-02-06] MEDS ORDERED: BUPIVACAINE/EPINEPHRINE 0.5% MPF 1:200,000 10 ML VIAL ONE (14:22)
[2020-02-06] MEDS ORDERED: PHENYLEPHRINE 100MCG/ML 5ML SYR ONE (15:42)
[2020-02-06] MEDS ORDERED: FLOSEAL HEMOSTATIC MATRIX 10ML TOP ONE (15:45)
[2020-02-06] MEDS ORDERED: HYDROmorphone INJ 2 MG/ML SYR/VIAL ONE (15:54)
--- NOTE | 2020-02-06 16:30 | Operative Report ---
Post Operative Report Pre & Post Diagnosis Operation Date: 02/06/20 11:55 Pre-Op Diagnosis: SPINAL STENOSIS, LUMBAR REGION Post-Op Diagnosis: SPINAL STENOSIS, LUMBAR REGION Nonunion L5-S1 I identified the patient and participated in the time-out.: Yes Procedure Operation Date: 02/06/20 11:55 Actual Procedures #1 removal of posterior instrumentation L5-S1. #2 exploration of fusion L5-S1. #3 lumbar decompression with bilateral medial facetectomies L4-L5. #4 posterior spinal fusion L4-5 L5-S1. #5 placement posterior instrumentation L4-5 L5-S1. #6 interbody fusion L4-5. #7 placement of peek cage 13 x 26 mm at L4-5. #8 placement locally harvested morselized autograft in the posterior lateral gutters. #9 placement infuse collagen sponge, master graft in the posterior lateral gutters and ostial amp and interbody space. Surgeon Frankie Mckinley DO Manuscripts Archivist Arleen Sanderson Estimated Blood Loss 100 Findings Consistent with Post-Op Diagnosis Specimens None Indications This is a 49-year-old male who presents with worsening back and bilateral leg pain with weakness subsequently we recommended urgent decompression and fusion. Description of Procedure Patient was met with preop the case discussed all questions were addressed with epic patient was taken back to the operative suite underwent intubation placed in a prone position on the Jeremiah table on top of the Keyur frame. All bony prominences well-padded eyes inspected to ensure no external pressure placed u annette them. This point the lumbar spine was prepped and draped in a normal sterile fashion. Sharp dissection with the assistance of Bovie cautery was performed down to and exposing the lamina and transverse processes of L4 and instrumentation at L5 and S1 level. Then proceeded to move the hardware bilaterally. I explored the fusion mass at L5-S1 it was absent. There is obvious motion across this level consistent with a non-union of the L5-S1 fusion. And then performed complete laminectomy of L4 including bilateral medial facetectomies and foraminotomies addressing severe lateral stenosis. Pedicle screws were then placed in L4-L5 and S1 levels bilaterally with assistance of fluoroscopy and appropriate sized kayleigh placed. By way of a trans- foraminal approach on the right a complete discectomy was performed endplates curetted to subcortical bleeding bone and a 13 x 26 mm peek cage filled with osteo-bone graft tapped in position. The rods were then locked into final position bilaterally. The transverse processes of L4-L5 and the sacral ala were then burred to subcortical bleeding bone. Infuse collagen sponge master graft local autograft was then placed in the posterior lateral gutters. 15 round ERIC drain inserted. The incision was then closed with 1 Vicryl in the fascia 2-0 Vicryl subcutaneously and 4 Monocryl for final skin closure. Steri-Strip sterile dressings placed. Patient will continue PACU stable condition. Please note spinal cord monitoring was utilized that the procedure no changes noted. Lastly Arleen Sanderson was present at the entire procedure and all the patient positioning complex portions of the surgery and final skin closure. I attest to the content of the Intraoperative Record and any orders documented therein. Any exceptions are noted below.
[2020-02-06] MEDS ORDERED: ESMOLOL HCL INJ 10 MG/ML 10ML VIAL IV ONE (16:48)
[2020-02-06] MEDS: fentaNYL citrate 100 MCG/2 ML VIAL IV PRN ×2 (17:11→17:19)
--- NOTE | 2020-02-06 17:36 | Anesthesiology Progress Note ---
Date of Service February 06, 2020 Anesthesia Post Procedure Vital Signs Vital Signs: Temp Pulse Pulse Resp BP Pulse Ox 02/06/20 17:25 36.3 C L 77 15 128/75 100 02/06/20 17:15 75 12 118/77 97 02/06/20 17:05 87 17 113/75 97 02/06/20 16:58 36.0 C L 90 17 135/84 99 02/06/20 12:16 73 18 99 02/06/20 10:36 37.2 C 80 18 133/81 96 Pain Intensity Lower Back: Pain Intensity: 4 Transfer of Care Handoff Completed per policy Notes Mental Status: alert / awake / arousable and participated in evaluation Nausea / Vomiting: adequately controlled Pain: adequately controlled Airway Patency, RR, SpO2: stable & adequate BP & HR: stable & adequate Hydration State: stable & adequate Anesthetic Complications: no major complications apparent and Pt Satisfied with anesthetic care
[2020-02-06] MEDS ORDERED: ALUMINUM/MAGNESIUM SUSP 30 ML UDC PO PRN (17:48)
[2020-02-06] MEDS ORDERED: LORazepam 0.5 MG/1 ML VIAL IV PRN (17:48)
[2020-02-06] MEDS ORDERED: ONDANSETRON 4 MG OD TAB PO PRN (17:48)
[2020-02-06] MEDS ORDERED: SOD PHOSPHATE/SOD BIPHOSPHATE ENEMA 132 ML BTL PR PRN (17:48)
[2020-02-06] MEDS ORDERED: NALOXONE HCL 0.4 MG/1 ML VIAL/CARP IV PRN (17:48)
[2020-02-06] MEDS ORDERED: PROMETHAZINE HCL 12.5 MG in SODIUM CHLORIDE 0.9% 50 ML IV PRN (17:48)
[2020-02-06] MEDS ORDERED: DO NOT ADMINISTER PNEUMOCOCCAL VACCINE PRN (17:48)
[2020-02-06] MEDS ORDERED: bisacodyL 10 MG SUPP PR PRN (17:48)
[2020-02-06] MEDS ORDERED: DO NOT ADMINISTER FLU VACCINE PRN (17:48)
[2020-02-06] MEDS ORDERED: ACETAMINOPHEN 1,000 MG/100 ML VIAL IV PRN (17:48)
[2020-02-06] MEDS ORDERED: HYDROmorphone INJ 1 MG/ML SYRINGE IV PRN (17:48)
[2020-02-06] MEDS ORDERED: LORazepam 0.5 MG TAB PO PRN (17:48)
[2020-02-06] MEDS ORDERED: METOCLOPRAMIDE HCL INJ 5 MG/ML 2 ML VIAL IV PRN (17:48)
[2020-02-06] MEDS ORDERED: MAGNESIUM HYDROXIDE SUSP 30 ML UDC PO PRN (17:48)
[2020-02-06] MEDS ORDERED: ALBUTEROL HFA 8 GM INHALER INH PRN (17:48)
[2020-02-06] MEDS ORDERED: FAMOTIDINE 20 MG TAB PO PRN (17:48)
[2020-02-06] MEDS: KETOROLAC 30 MG/ML VIAL IV SCH ×2 (18:26→23:22)
[2020-02-06] MEDS: LACTATED RINGER'S 1,000 ML IV SCH (19:55)
[2020-02-06] MEDS: ATORVASTATIN 40 MG TAB PO SCH (20:00)
[2020-02-06] MEDS: DOCUSATE SODIUM/SENNA 50/8.6MG TAB PO SCH (20:00)
[2020-02-06] MEDS: PANTOprazole 40 MG TAB PO SCH (20:00)
[2020-02-06] MEDS: GABAPENTIN 400 MG CAP PO SCH (20:00)
[2020-02-06] MEDS: OXYCODONE HCL IR 5 MG TAB (IMMEDIATE RELEASE) PO PRN (20:07)
[2020-02-06] MEDS: CLINDAMYCIN 600 MG in DEXTROSE 5% 50 ML IV SCH (21:26)
[2020-02-07] MEDS: OXYCODONE HCL IR 5 MG TAB (IMMEDIATE RELEASE) PO PRN ×4 (03:04→21:03)
[2020-02-07] MEDS: POLYETHYLENE (MIRALAX) 17 GM PACK PO SCH ×3 (05:44→19:37)
[2020-02-07] MEDS: CLINDAMYCIN 600 MG in DEXTROSE 5% 50 ML IV SCH (05:44)
[2020-02-07] MEDS: KETOROLAC 30 MG/ML VIAL IV SCH ×2 (05:44→11:27)
[2020-02-07] MEDS: LACTATED RINGER'S 1,000 ML IV SCH (05:45)
[2020-02-07 06:10] LABS: Basophils # (auto) 0.03 K/uL (0-0.2); Basophils % (auto) 0.3 %; Eosinophils # (auto) 0.06 K/uL (0-0.5); Eosinophils % (auto) 0.5 %; Hematocrit (blood only) 36.7 % (42-52); Hemoglobin 12.3 g/dL (14.0-18.0); Immature Granulocytes # (auto) 0.03 K/uL (0.00-0.02); Immature Granulocytes % (auto) 0.3 %; Lymphocytes # (auto) 3.34 K/uL (1.2-3.4); Mean Corpuscular Hgb Conc 33.5 g/dL (32-36); Mean Corpuscular Volume 98.4 fL (80-100); Mean Platelet Volume 8.5 fL (7.4-10.4); Monocytes % (auto) 8.4 %; Neutrophils # (auto) 7.46 K/uL (1.4-6.5); Neutrophils % (auto) 62.5 %; Platelet Count 299 K/uL (130-400); RDW Standard Deviation 49.8 fL (36.4-46.3); Red Blood Count 3.73 M/uL (4.7-6.1); White Blood Count 11.92 K/uL (4.8-10.8)
[2020-02-07 06:40] LABS: BUN Creatinine Ratio 11.1 (10-20); Calcium 7.8 mg/dl (8.5-10.1); Creatinine Clr Calc Pharmacy 84.1 ml/min; Est GFR (African American) 87.4; Est GFR (Non-African American) 75.4; Potassium 4.1 mmol/L (3.5-5.1)
[2020-02-07] MEDS: UMECLIDINIUM BROMIDE 62.5MCG/BLISTER 7 PUFFS/INHALER INH SCH (08:41)
[2020-02-07] MEDS: FLUTICASONE/VILANTEROL 100/25MCG 14 PUFFS/INHALER INH SCH (08:41)
[2020-02-07] MEDS: MULTIVITAMIN TAB PO SCH (08:42)
[2020-02-07] MEDS: DULOXETINE HCL 60 MG CAP PO SCH (08:42)
[2020-02-07] MEDS: GABAPENTIN 400 MG CAP PO SCH ×3 (08:42→20:59)
[2020-02-07] MEDS: PANTOprazole 40 MG TAB PO SCH ×2 (08:42→21:00)
[2020-02-07] MEDS ORDERED: DULOXETINE 60 MG PO SCH (09:00)
--- NOTE | 2020-02-07 09:45 | Fluoroscopy Report ---
FL lumbar spine 2-3V CLINICAL HISTORY: 49 years-old Male presenting with L4-5 DECOMP, L4-S1 HARDWARE REMOVAL. TECHNIQUE: 2 fluoroscopic image(s) recorded as part of an intraoperative procedure. COMPARISON: 11/09/2019. FINDINGS/IMPRESSION: Posterior bilateral transpedicular screw and kayleigh fixation of L4-S1 with interbody spacers at L4-5 and L5-S1 and laminectomy defects of L4 and L5. Trace retrolisthesis of L4 on L5 may be present as on pr ior MR. Please see surgical report for further details. Fluoroscopy dosage (mGy): 12.56. Fluoroscopy time: 18.4 seconds. Number or time of high level fluoroscopy (HLF), digital spot, or digital subtraction images: 0. ACT 112: Negative or not required by law. Electronically signed by: Earl Herrera M.D. 02/07/2020 9:44 AM
[2020-02-07] MEDS: NICOTINE 21 MG/24 HR TDSY TD SCH (13:24)
--- NOTE | 2020-02-07 14:48 | Orthopedic Progress Note ---
Date of Service February 07, 2020 Assessment & Plan (1) Lumbar postlaminectomy syndrome: At this time the patient is noting improved strength to the lower extremities. We will continue physical therapy monitor his ERIC output anticipate discharge home in the next few days. Admission and Anticipated Discharge Date Admission Date: February 06, 2020 Subjective Back pain controlled leg pain markedly improved. Physical Exam Physical Exam: Patient is in the chair at the bedside. Appears comfortable. Is good strength testing. Results & Data ([facility]) Vital Signs (Past 12 Hours) Vital Signs Temp Pulse Resp BP Pulse Ox 02/07/20 11:34 92 02/07/20 11:20 37 C 96 H 16 107/68 91 02/07/20 07:32 36.7 C 84 16 106/65 91 02/07/20 02:56 36.7 C 85 14 96/57 L 91
[2020-02-07] MEDS: DOCUSATE SODIUM/SENNA 50/8.6MG TAB PO SCH (20:59)
[2020-02-07] MEDS: ATORVASTATIN 40 MG TAB PO SCH (20:59)
[2020-02-08] MEDS: ACETAMINOPHEN 500 MG TAB PO PRN ×2 (00:32→14:14)
[2020-02-08] MEDS: OXYCODONE HCL IR 5 MG TAB (IMMEDIATE RELEASE) PO PRN ×2 (05:10→10:06)
[2020-02-08] MEDS: UMECLIDINIUM BROMIDE 62.5MCG/BLISTER 7 PUFFS/INHALER INH SCH (09:59)
[2020-02-08] MEDS: FLUTICASONE/VILANTEROL 100/25MCG 14 PUFFS/INHALER INH SCH (09:59)
[2020-02-08] MEDS: DULOXETINE HCL 60 MG CAP PO SCH (10:00)
[2020-02-08] MEDS: GABAPENTIN 400 MG CAP PO SCH ×2 (10:00→14:14)
[2020-02-08] MEDS: PANTOprazole 40 MG TAB PO SCH (10:00)
[2020-02-08] MEDS: MULTIVITAMIN TAB PO SCH (10:00)
[2020-02-08] MEDS: NICOTINE 21 MG/24 HR TDSY TD SCH (10:00)
--- NOTE | 2020-02-08 10:39 | Discharge Summary ---
Date of Service February 08, 2020 Admission HPI Per Admitting Provider This is a 49-year-old male who presents with worsening back and bilateral leg pain. Specifically discharge symptoms on the right leg greater than left. He notes marked decline in ability to stand and ambulate. He is failed extensive course of nonoperative care. He is describing a foot drop with ambulation affecting the right lower extremity. Principal Diagnosis Lumbar spinal stenosis with neurogenic claudication and nonunion L5-S1 Discharge Data Allergies Allergy/AdvReac Type Severity Reaction Status Date / Time Penicillins Allergy Intermediate RASH Verified 02/06/20 10:40 tramadol AdvReac Mild FELT "OUT Verified 02/06/20 10:40 OF IT" AND "SKIN CRAWLING SENSATION" Consultations 02/06/20 17:48 Consult Case Management - Discharge Planning Routine Procedures Performed Operation Date: 02/06/20 11:55 Actual Procedures p L4-L5 Decompression, L4-S1 Fusion; Spinal Cord Monitoring(Not Applicable) - Frankie Mckinley DO s L5-S1 Hardware Removal(Not Applicable) - Frankie Mckinley DO Ordered Studies 02/06/20 11:55 FL fluoroscopy <1hr Routine FL lumbar spine 2-3V Routine Hospital Course (1) Neurogenic claudication due to lumbar spinal stenosis: Patient underwent revision decompression fusion tolerated this well was taken to orthopedic floor postoperative. Postop day 1 he was up and ambulating leg pain and strength improving. He progressed to postop day #2. ERIC drain decreasing probably. Excellent strength testing. Subsequently discharged home. Discharge orders and instructions on a chart for further review. Total Time Total Time Spent Total Time Spent (In Minutes): 20 minutes Discharge Plan Discharge Items Patient Disposition: Home - Self-Care Reason For Visit: SPINAL STENOSIS, LUMBAR REGION Discharge Diagnosis: Spinal stenosis L4-L5 with nonunion L5-S1 Activity: As commented below Non-emergency contact: Primary Care Provider Call non-emergency contact if: you have any medication questions Follow-up/Referrals: Effie Lopez CRNP [Primary Care Provider] - Diet: Regular Addtl Attending Provider Instructions: ACTIVITY RECOMMENDATIONS: SELF CARE INSTRUCTIONS AFTER THORACIC/LUMBAR FUSIONS 1. You may walk to your tolerance. It is good exercise for your legs and back. Expect some back and intermittent leg aches and pains. 2. You may perform "counter-top" level activities (make a sandwich, chan with a project, etc.). 3. No bending or lifting of more than 10 pounds or back twisting of any nature (roll like a log when turning in bed). 4. You may ride in a car for 20-30 minutes at a time. No driving until after your first visit with your doctor. 5. Frequent changes of position and restricting sitting to 30 minutes at a time will help limit the amount of back spasms and stiffness you may experience. 6. You may discontinue the use of ambulatory aids (cane, crutches, etc.) once your strength and confidence allow. 7. You may advisory intern the shower and let water strike your incision when you arrive home at least once daily. Do not take a tub bath, sit in a hot tub or go into a swimming pool until after your first recheck in the office. SPECIAL CARE INSTRUCTIONS: VERY IMPORTANT TO READ AND REVIEW A. Your surgical incision has been closed with a cosmetic suture under the skin that will dissolve in about 6 weeks. In 14 days, you can use a pair of clean scissors and cut the suture that is left outside of the skin at the ends of your incision. 1. The small skin tapes can be removed 7 days after surgery if they have not fallen off by that point. 2. You may keep the wound open to air as much as possible to promote healing after post-op day number 5 unless told otherwise by your doctor. 3. If you think the wound looks like it is becoming infected (redness or worsening drainage) and/or you are experiencing fever, chill or worsening back pain and muscle spasms, contact the office so that we may evaluate you as soon as possible. B. Complications are uncommon, but please contact us if you have any signs or symptoms of: 1. wound infection (fever higher than 102.5 degrees F, redness, separation of wound, drainage, or increasing pain from the incision) 2. blood clots in legs (pain, swelling, redness and warmth in legs) 3. urinary tract infection (fever higher than 102.5 degrees F, burning upon urination or increased frequency of urination) 4. nerve problems (inability to walk on your toes or heels, numbness, loss of bowel or bladder control) 5. any other symptoms that concern you C. Please call the office at if you have any concerns or questions about your operation or recovery. D. No smoking! Smoking drastically decreases the chance of a solid fusion. E. Do not take any anti-inflammatory medications (Indocin, Advil, Motrin, Aspirin, Naprosyn, etc.) as these may inhibit the chance of a solid fusion. Tylenol is okay to take for pain. MANAGING PAIN AFTER SPINAL SURGERY 1. Narcotic medication is intended for short-term use and will be provided for surgical pain. Surgical pain usually lasts for a period of 4-6 weeks. Narcotic medication includes Percocet, Vicodin, Darvocet, Tylenol #3 or Lortab. 2. Longer-term pain is more appropriately treated with non-narcotic medication such as Tylenol ES. 3. Muscle spasm is not appropriately treated with narcotics. Muscle relaxers such as Soma, Flexeril or Skelaxin can be used along with Tylenol ES. 4. Remember that we all live with some "aches and pains". This is not unusual or uncommon after an injury or as we get older. a. Back pain is expected and may include muscle spasms for 4 to 6 weeks after surgery. The pain should gradually improve. If the pain worsens for no apparent reason, please contact the office. b. Intermittent leg pain may also be experienced and should not be concerned about unless it worsens for no apparent reason. If so, please contact the office. 5. We will provide appropriate medication within the normal guidelines of their prescribed use. We will also be very cautious and aware of potential abuse and extended duration of patients' medication needs. a. Pain medications are for your comfort and to assist with sleep and rest so that the tissue can heal. They are not provided in order to return to normal activity and should not be used through the day. To do so or worsening pain at night can result from ongoing tissue damage and development of tolerance to the prescribed medicine. 6. Please allow 2-3 days to process refills. Prescriptions will not be mailed but must be picked up at the office. FOLLOW UP VISIT: Keep your scheduled follow-up appointment. Any questions, please call the office at . Pending Studies at Discharge: No Stand-Alone Forms: My [email or web address], Smoking Cessation Medications and DC Order Prescriptions: New tramadol 50 mg tablet 50 mg PO Q6H PRN (Reason: pain, moderate) Qty: 30 RF: 0 oxycodone 5 mg tablet 5 mg PO Q6H PRN (Reason: pain, severe) Qty: 20 RF: 0 Continued fluticasone furoate-vilanterol [Breo Ellipta] 100-25 mcg/dose blister with device 1 inha INH QAM RF: 0 Spiriva with HandiHaler 18 mcg Capsule, W/Inhalation Device 2 cap INHALATION QAM Qty: 0 RF: 0 albuterol sulfate [Ventolin HFA] 90 mcg/actuation HFA aerosol inhaler 2 puffs INH TID PRN (Reason: sob) RF: 0 atorvastatin 80 mg Tablet 80 mg PO HS RF: 0 gabapentin 400 mg Capsule 400 mg PO TID RF: 0 duloxetine 60 mg Capsule, Delayed Rel Sprinkle 60 mg PO QAM RF: 0 multivitamin Tablet 1 tab PO QAM RF: 0 acetaminophen 500 mg Tablet 500 mg PO Q6H PRN (Reason: Pain) RF: 0 esomeprazole magnesium [Nexium] 40 mg Capsule,Delayed Release(Dr/Ec) 40 mg PO BID RF: 0 Discontinued diclofenac sodium 75 mg tablet,delayed release (DR/EC) 75 mg PO BID Qty: 60 RF: 1 Discharge Orders: Discharge Order (Routine); Ordered 02/08/20 Ordered By: Frankie Mckinley Admission Data Admit Date/Time: 02/06/20 17:23 Attending Provider: Frankie Mckinley Admit Provider: Frankie Mckinley Primary Care Provider: Effie Lopez
== END 2020-02-08 15:46 | disposition home or self-care (01) | DRG 455 ==
LOC: ASU 09:57 → 3E 17:23